=== PATIENT | male | born 1940 | race Caucasian/White ===

== ENCOUNTER → 2017-04-25 07:23 | Outpatient (CLI) | payer MEDICARE, OTHER ==
[2014-04-19 14:38] VITALS: BMI 30.6
[~2017-04-25 07:23] MED LIST: BAYER CHEWABLE81 MG PO; FISH OIL 1,0001 CA1 PO; LOPID600 MG PO; NIASPAN500 MG PO; ZIAC 2.5/6.25 M1 TAB PO
== END | disposition home or self-care (01) ==
LOC: D.US 07:23
DX: R20.9 Unspecified disturbances of skin sensation (principal); M79.604 Pain in right leg

== ENCOUNTER 2017-08-14 07:35 | Day surgery (SDC) | payer MEDICARE, OTHER ==
[2017-08-13 10:34] LABS: HEMATOCRIT 48.6 % (42.0-54.0); MCH 31.3 pg (26.0-34.0); MCV 89.5 fL (80.0-100.0); MEAN PLATELET VOLUME 10.9 fL (7.4-10.4); RBC 5.43 10x6/uL (4.20-6.10); RDW 12.7 % (11.5-14.5); WBC 7.4 10x3/uL (4.8-10.8)
[2017-08-13 10:46] LABS: ANION GAP 12.7 mmol/L (8-16); CALCIUM 8.8 mg/dL (8.5-10.1); CARBON DIOXIDE 27.5 mmol/L (21.0-32.0); CREATININE - SERUM 1.2 mg/dL (0.6-1.3); POTASSIUM - SERUM 4.2 mmol/L (3.5-5.1)
[~2017-08-14] VITALS: Ht 182.9 cm; Wt 103.4 kg
--- NOTE | ~2017-08-14 | OP ---
PATIENT NAME: JADIEL REY MEDICAL RECORD: [id number] :42 LOCATION:D.[facility] ADMISSION DATE: SURGEON: JADIEL LIRIANO MD DATE OF OPERATION: 08/14/2017 SURGEON: Jadiel Liriano MD ANESTHESIA: MAC by Chandana Cameron CRNA. PREOPERATIVE DIAGNOSIS: Elevated PSA of 6.3 taken on 06/26/2017. PROCEDURE: Transrectal ultrasound and prostate biopsy. FINDINGS: 47.7 gram prostate, no hypoechoic areas. SPECIMENS: Prostate biopsy cores. BLOOD LOSS: None. CLINICAL HISTORY: This is a 76-year-old male who was referred with an elevated PSA of 6.3, which was obtained on 06/26/2017. He has been on testosterone supplementation for low testosterone levels. He does not have any voiding symptoms to speak of. He did see Dr. Pandey on 10/20/2014 when the PSA was 5.5. At that time, the PSA elevation was attributed to an E. coli urinary tract infection. He did not follow up with Dr. Pandey. On rectal examination, he has a moderate sized prostate without any nodules palpated. He comes today for a transrectal ultrasound prostate biopsy. He is not allergic to any medications. 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 He has a negative family history for prostate cancer. DESCRIPTION OF PROCEDURE: The patient was given IV sedation. He was then placed into dorsal lithotomy position. The transrectal ultrasound probe was introduced and prostate size measurements were obtained. We estimated prostate size to be about 48 grams, specifically 47.7 grams. No hypoechoic nodules were seen. He does have some prostatic stones at the base of the prostate. Sextant biopsies were obtained with at least 3 cores from each sextant. Once all the specimens were obtained, the procedure was terminated. The patient will be going home today. I will see him in followup next week to review the pathology with him. TRANSINT:[id number] Voice Confirmation ID: [id number] DOCUMENT ID: [id number] JADIEL LIRIANO MD at 1621 CC: [id number] DICTATION DATE: 08/14/17 1340 [employer] DIRECTOR: 08/14/17 1417 [id number] [place] [address]
[~2017-08-14 07:35] MED LIST changes: +CLARITIN 10 MG10 MG PO; +[UNRECOGNIZED DRUG - REMARK] PO
[2017-08-14 08:57] VITALS: BP 129/79; Ht 182.9 cm; Wt 103.4 kg
== END 2017-08-14 14:10 | disposition home or self-care (01) ==
LOC: D.OPS 07:35 → D.PAN 10:00 → D.OPS 10:45
PROVIDERS: Anesthesiology
DX: R97.20 Elevated prostate specific antigen [PSA] (principal); Z87.891 Personal history of nicotine dependence; Z01.812 Encounter for preprocedural laboratory examination

== ENCOUNTER → 2017-08-28 07:46 | Outpatient (CLI) | payer MEDICARE, OTHER ==
[2017-08-14 08:57] VITALS: BMI 31.0
== END | disposition home or self-care (01) ==
LOC: D.NM 07:46
DX: C61 Malignant neoplasm of prostate (principal)

== ENCOUNTER 2019-03-19 07:55 | Day surgery (SDC) | payer MEDICARE, OTHER ==
[2019-03-18 08:59] LABS: BASOPHILS 0.2 % (0-2); EOSINOPHILS 1.3 % (0-7); HEMATOCRIT 42.2 % (42.0-54.0); HEMOGLOBIN 14.3 g/dL (13.5-17.5); IMMATURE GRANULOCYTES 0.1 % (0-5); LYMPHOCYTES 10.2 % (15-50); MCH 30.9 pg (26.0-34.0); MCHC 33.9 g/dL (31.0-37.0); MCV 91.1 fL (80.0-100.0); MEAN PLATELET VOLUME 10.4 fL (7.4-10.4); MONOCYTES 9.8 % (2-11); NEUTROPHILS 78.4 % (40-80); PLATELET COUNT 181 10x3/uL (130-400); RBC 4.63 10x6/uL (4.20-6.10); RDW 12.9 % (11.5-14.5); WBC 8.5 10x3/uL (4.8-10.8)
[2019-03-18 09:11] LABS: INR 1.12 (0.85-1.17); PROTIME 13.9 SECONDS (11.6-15.0)
[2019-03-18 09:12] LABS: APTT 30.6 SECONDS (22.8-39.4)
[~2019-03-19] VITALS: Ht 182.9 cm; Wt 104.3 kg
[~2019-03-19 07:55] MED LIST changes: +ECHINACEA PO; +LIPITOR20 MG PO; +NIACIN250 M1 PO; +VITAMIN B-122500 MCG PO
[2019-03-19] MEDS ORDERED: ZYRTEC10 MG PO (08:29)
[2019-03-19 08:51] VITALS: BP 121/75; Ht 182.9 cm; Wt 104.3 kg
[2019-03-19] MEDS ORDERED: HYDROCODON-ACE1 EA10 PO (11:28)
--- NOTE | 2019-03-19 14:32 | NUR ---
1325-DISCHARGE CRITERIA MET. REMOVED IV WITH CATH INTACT, DISPOSED INTO SHARPS.COVERED SITE WITH BANDAID. REVIEWED POST OPERATIVE INSTRUCTIONS WITH PT. VERBALIZED UNDERSTANDING. ESCORTED OUT VIA W/C WITH SPOUSE AWAITING TO DRIVE HOME.
--- NOTE | 2019-03-19 14:36 | NUR ---
1340-DISCHARGE CRITERIA MET. REMOVED IV WITH CATH INTACT. DISPOSED INTO SHARPS, COVERED SITE WITH BANDAID. REVIEWED POST OPERATIVE INSTRUCTIONS WITH PT. VERBALIZED UNDERSTANDING. ESCORTED OUT VIA W/C WITH SPOUSE AWAITING TO DRIVE HOME.
--- NOTE | 2019-03-31 15:11 | OP ---
PATIENT NAME: IAN REY MEDICAL RECORD: [id number] :42 LOCATION:[facility] ADMISSION DATE: SURGEON: TERENCE VALDEZ MD DATE OF OPERATION: 03/19/2019 PREOPERATIVE DIAGNOSES: Rotator cuff tear of the left shoulder with impingement syndrome. POSTOPERATIVE DIAGNOSES: Rotator cuff tear of the left shoulder with impingement syndrome. PROCEDURES: 1. Left shoulder arthroscopic rotator cuff repair. 2. Left shoulder arthroscopic distal clavicle excision done through separate incision -- 1 cm. 3. Left shoulder subacromial decompression with acromioplasty and bursectomy. SURGEON: Terence Valdez MD ANESTHESIA: General. INTRAOPERATIVE COMPLICATIONS: None. SUMMARY OF PATHOLOGIC FINDINGS: The patient was unfortunately indeed found to have a full thickness rotator cuff tear that required intraoperative fixation as well as a downward sloping acromion and grade IV chondromalacia of the distal clavicle. The acromion showed coracoacromial ligament changes and required a complete release. OPERATIVE SUMMARY IN DETAIL: After obtaining the appropriate preoperative orthopedic surgery consent as well as anesthetic consultation, evaluation and clearance, the patient was brought to the operating room and placed on the operating table in supine position. After adequate intraoperative time out was performed, the patient was placed in a right lateral decubitus position. All pressure points were well padded to include down peroneal pad as well as axillary roll. The patient was held firmly to the operating table using the vacuum pack suction system. Left upper extremity and shoulder were then prepped and draped in routine sterile fashion. The arm was held in the [employer] traction boom in 30 degrees of forward flexion, 30 degrees of abduction with 10 pounds of traction laterally. Arthroscopy was established in the glenohumeral joint from the posterior portal. Anterior portal was established from the anterior safe interval. Diagnostic arthroscopy showed the patient to have full thickness rotator cuff tear from the undersurface. Transrotator cuff tear portal was created to debride and decorticate the undersurface of rotator cuff tearing as well as the articular aspect of the supraspinatus tendinous footprint. Attention was then turned to the subacromial space. The surface tissue ablation system was utilized to denude the undersurface of the acromion of all soft tissue elements and release the coracoacromial ligament. A 5-0 barrel bur was then used to perform acromioplasty at the level of acromioclavicular joint. Having completed this, through a separate anterior arthroscopic portal, distal clavicle was excised for 1 cm under direct arthroscopic visualization. Lastly, attention was turned to the rotator cuff. After taking down the residual bursa, an inverted FiberTape was utilized to grasp the rotator cuff. It was anchored laterally with a 5.5 SwiveLock from [employer]. After excellent stabilization of the rotator cuff, the arthroscopic portals were closed using 4-0 Prolene in OPERATIVE REPORT [id number] IAN REY A routine interrupted fashion. Sterile dressings were applied. The patient was awakened and taken to recovery room in stable condition. All final needle and sponge counts were correct. TRANSINT:[id number] Voice Confirmation ID: [id number] DOCUMENT ID: [id number] JOSÉ MIGUEL MARTINEZ, TERENCE JANG at 1511 CC: [id number] DICTATION DATE: 03/31/19824 SUPERVISOR SHIPPING ROOM: 03/31/19 1002 [facility] 03/19/19 [id number] [place] [address]
== END 2019-03-19 13:40 | disposition home or self-care (01) ==
LOC: D.OPS 07:55 → D.PAN 09:45 → D.OPS 10:15 → D.PAN 11:55 → D.OPS 11:55
PROVIDERS: Anesthesiology; ATTEND Orthopaedic Surgery
DX: M75.102 Unspecified rotator cuff tear or rupture of left shoulder, not specified as traumatic (principal); M75.42 Impingement syndrome of left shoulder